=== PATIENT | male | born 1970 | race Caucasian/White ===

== ENCOUNTER 2024-03-30 07:10 | Day surgery (SDC) | payer OTHER ==
[~2024-03-30] VITALS: Ht 170.2 cm; Wt 95.3 kg
[2024-03-30] MEDS ORDERED: LIDOCAINE 2% 1000 MG/50 ML VIAL INJ ONE (07:39)
== END 2024-03-30 09:52 | disposition home or self-care (01) ==
LOC: MOR 07:10 → MMU 07:12 → MOR 09:52
PROVIDERS: ATTEND Internal Medicine Gastroenterology
DX: K75.81 Nonalcoholic steatohepatitis (NASH) (principal); E66.9 Obesity, unspecified; E78.00 Pure hypercholesterolemia, unspecified; Z90.49 Acquired absence of other specified parts of digestive tract; Z68.32 Body mass index [BMI] 32.0-32.9, adult
CPT/HCPCS: 47000; 76942; J2001; Q0092